=== PATIENT | male | born 2000 | race Two or more races ===

== ENCOUNTER 2025-01-25 16:18 | Emergency (ER) | payer OTHER ==
[~2025-01-25] VITALS: Ht 175.3 cm; Wt 68.0 kg
[2025-01-25 18:04] VITALS: BP 137/75; O2SAT 99
[2025-01-25] MEDS ORDERED: METHYLPREDNISOLONE SOD SUCC 125 MG VIAL IV ONE (22:00)
[2025-01-25] MEDS ORDERED: FAMOTIDINE/PF 20 MG/2 ML VIAL ONE (22:00)
[2025-01-25] MEDS ORDERED: DIPHENHYDRAMINE HCL 50 MG/ML VIAL 1ML IV ONE (22:00)
[2025-01-25] MEDS ORDERED: METHYLPREDNISOLONE SOD SUCC 125 MG VIAL ONE (22:00)
[2025-01-25] MEDS ORDERED: DIPHENHYDRAMINE HCL 50 MG/ML VIAL 1ML ONE (22:00)
[2025-01-25] MEDS ORDERED: FAMOtidine 10 MG/ML (4ML VIAL) IV ONE (22:00)
[2025-01-25 22:24] LABS: BASO % 0.5 % (0.1-1.2); EOS # 0.26 (0.04-0.54); EOS % 3.0 % (0.7-7.0); LYMPH # 1.73 (1.18-3.74); LYMPH % 20.1 % (19.3-53.1); MEAN PLATELET VOLUME 10.00 fl (9.4-12.4); MONO # 0.90 (0.24-0.82); MONO % 10.5 % (4.7-12.5); NEUT # 5.66 (1.56-6.13); NEUT % 65.7 % (34.0-71.1); RED CELL DISTRIBUTION WIDTH 12.2 % (11.6-14.4)
[2025-01-26] MEDS ORDERED: ATARAX25 MG PO (00:29)
[2025-01-26] MEDS ORDERED: CORTISONE60 GM TOP (00:29)
== END 2025-01-26 01:58 | disposition home or self-care (01) ==
LOC: ER 16:18
PROVIDERS: General Practice
DX: L30.8 Other specified dermatitis (principal); R21 Rash and other nonspecific skin eruption